=== PATIENT | female | born 1985 | race African-American/Black ===

== ENCOUNTER 2020-12-04 11:06 | Emergency (ER) | payer OTHER ==
[2020-12-04 12:33] LABS: #Eosinphils 0.1 10x3/uL (0.0-0.5); #Monocytes 0.8 10x3/uL (0.0-1.1); #Neutrophils 7.6 10x3/uL (1.5-8.4); %Basophils 0.2 % (0.0-2.0); %Eosinophils 0.8 % (0.0-6.0); %Lymphocytes 20.5 % (18.0-47.0); %Monocytes 7.4 % (0.0-10.0); %Neutrophils 70.4 % (40.0-75.0); Hemoglobin 10.8 g/dL (12.0-15.5); Mean Corpuscular HGB CONC 32.2 g/dL (32.0-36.0); Mean Corpuscular Hemoglobin 26.3 pg (27.0-33.0); Mean Corpuscular Volume 81.5 fl (81.6-98.3); Mean Platelet Volume 10.3 fl (7.4-10.4); Platelet Count 208 10x3/uL (150-450); RBC Distribution Width 14.8 % (11.5-14.5); Red Blood Cell (RBC) Count 4.11 10x6/uL (3.90-5.03); White Blood Cell (WBC) Count 10.8 10x3/uL (3.5-10.5)
[2020-12-04 12:34] LABS: Bilirubin Neg (Negative); Blood, Urine 10 (Negative); Clarity Slightly Cloudy (Clear); Glucose, Urine (Dipstick) Normal (Negative); Ketone, Urine 5 mg/dL (Negative); Leukocyte 25 (Negative); Nitrite Positive (Negative); Protein, Urine (Dipstick) 15 mg/dl (Neg-Trace); pH, Urine 6.5 (5.0-9.0)
[2020-12-04 12:35] LABS: Pregnancy Test - Urine (BHCG) POSITIVE (Negative); Pregu Control Background? CLEAR/WHITE (CLR/WHITE); Pregu Control Bar Appear? YES (CONTROL BAR)
[2020-12-04 12:43] LABS: Bacteria/HPF 1+ HPF (None Seen); RBC/HPF 0-3 HPF (0-3); WBC/HPF 0-3 HPF (0-3)
[2020-12-04 12:49] LABS: ALT (SGPT) 6 U/L (8-55); AST (SGOT) 12 U/L (5-34); Albumin 3.3 g/dL (3.5-5.0); Alkaline Phosphatase 124 U/L (40-110); Anion Gap 10 mmol/L (10-20); BUN (Urea Nitrogen) 6 mg/dL (7.0-18.7); Bilirubin, Total 0.2 mg/dL (0.2-1.2); Calc. Creatinine Clearance 0 mL/min (70-130); Calcium 9.1 mg/dL (7.8-10.44); Carbon Dioxide 24 mmol/L (22-29); Chloride 105 mmol/L (98-107); Globulin 3.4 g/dL (2.4-3.5); Glucose 81 mg/dL (70-105); Lipase 19 U/L (8-78); Potassium 4.2 mmol/L (3.5-5.1); Protein, Total 6.7 g/dL (6.0-8.3); Sodium 135 mmol/L (136-145)
== END 2020-12-04 14:40 | disposition home or self-care (01) ==
LOC: CSHERS 11:06
DX: R10.2 Pelvic and perineal pain (principal); Z33.1 Pregnant state, incidental
CPT/HCPCS: 36415; 76815; 80053; 81003; 81015; 81025; 83690; 84702; 85025

== ENCOUNTER 2021-03-21 04:24 | Inpatient (IN) | payer OTHER ==
[2021-03-21] MEDS ORDERED: Ondansetron PF 4 MG/2 ML Vial IVP PRN ×3 (05:19→12:32)
[2021-03-21] MEDS ORDERED: Bicitra 30 ML UDCUP PO PRN (05:19)
[2021-03-21] MEDS ORDERED: Docusate 100 MG CAP PO PRN (05:19)
[2021-03-21] MEDS ORDERED: Famotidine/PF 20 mg/2ml Vial SLOW IVP PRN (05:19)
[2021-03-21] MEDS ORDERED: hydrALAZINE 20 MG/ML VIAL SLOW IVP PRN ×2 (05:19→12:32)
[2021-03-21] MEDS ORDERED: Promethazine HCl 25 MG/ML VIAL IM PRN ×3 (05:19→12:32)
[2021-03-21] MEDS ORDERED: Acetaminophen 500 MG TAB PO PRN (05:19)
[2021-03-21] MEDS ORDERED: Azithromycin 500 MG in Sodium Chloride 0.9% 250 ML 250 ML IVPB SCH (05:30)
[2021-03-21] MEDS ORDERED: Lactated Ringer's 1,000 ML IV SCH (05:30)
[2021-03-21] MEDS ORDERED: CEFAZOLIN 2 GM in Premix Bag 1 BAG IVPB SCH (05:30)
[2021-03-21 05:42] VITALS: BMI 42.0
[2021-03-21 06:29] LABS: Hemoglobin 10.1 g/dL (12.0-15.5); Mean Corpuscular HGB CONC 30.9 g/dL (32.0-36.0); Mean Corpuscular Hemoglobin 24.3 pg (27.0-33.0); Mean Corpuscular Volume 78.8 fl (81.6-98.3); Mean Platelet Volume 11.1 fl (7.4-10.4); Platelet Count 179 10x3/uL (150-450); RBC Distribution Width 14.7 % (11.5-14.5); Red Blood Cell (RBC) Count 4.15 10x6/uL (3.90-5.03); White Blood Cell (WBC) Count 10.8 10x3/uL (3.5-10.5)
[2021-03-21] MEDS ORDERED: Oxytocin 10 UNITS/ML VIAL ONE (06:48)
[2021-03-21] MEDS ORDERED: Morphine PF 10 MG/10 ML VIAL ONE (06:48)
[2021-03-21] MEDS ORDERED: Phenylephrine 40 MG/NS 250 ML 250 ML ONE (06:49)
[2021-03-21] MEDS ORDERED: Ondansetron PF 4 MG/2 ML Vial ONE (06:49)
[2021-03-21] MEDS ORDERED: Metoclopramide HCl 10 MG/2 ML VIAL ONE (06:49)
[2021-03-21] MEDS ORDERED: Ketorolac Tromethamine 30 MG/ML VIAL ONE (06:49)
[2021-03-21] MEDS ORDERED: PHENYLEPHRINE-NS 100 MCG/ML 10 ML SYRINGE ONE (06:49)
[2021-03-21] MEDS ORDERED: Dexamethasone 4 mg/ml Vial ONE (06:49)
[2021-03-21] MEDS ORDERED: Carboprost 250 MCG/ML AMP ONE (07:00)
[2021-03-21] MEDS ORDERED: Methylergonovine 0.2 MG/ML VIAL ONE (07:00)
[2021-03-21] MEDS ORDERED: Misoprostol 200 MCG TAB ONE (07:01)
[2021-03-21 07:06] LABS: Hep B Surf Ag Non-Reactive S/CO (NonReactive)
[2021-03-21 07:07] LABS: Syphilis Antibody Nonreactive (Nonreactive); Syphilis Antibody Index 0.04 S/CO (<1.00 Non-Reactive)
[2021-03-21] MEDS ORDERED: EPINEPHrine 1 MG/10 ML Abboject SYRINGE ONE (07:51)
[2021-03-21] MEDS ORDERED: EPINEPHrine 1 MG/ML AMP ONE (07:54)
[2021-03-21] MEDS ORDERED: ePHEDrine Sulfate 50 MG/10 ML VIAL ONE (08:16)
[2021-03-21] MEDS ORDERED: L&D-Morphine 4 MG/ML VIAL SLOW IVP PRN (10:07)
[2021-03-21] MEDS ORDERED: Naloxone HCl 0.4 mg/ml Vial IV PRN (10:07)
[2021-03-21] MEDS ORDERED: Ondansetron HCl/PF 4 MG/2 ML Vial IVP PRN (10:07)
[2021-03-21] MEDS ORDERED: Hydrocerin (Eucerin) Cream 120 gm Jar TOP PRN (10:07)
[2021-03-21] MEDS ORDERED: Promethazine HCl 25 MG SUPP PR PRN (10:07)
[2021-03-21] MEDS ORDERED: Naloxone HCl 0.4 mg/ml Vial IVP PRN ×2 (10:07)
[2021-03-21] MEDS ORDERED: Meperidine HCl/PF 25 MG/ML VIAL SLOW IVP PRN (10:07)
[2021-03-21] MEDS ORDERED: HYDROmorphone 2 MG/ML VIAL SLOW IVP PRN (10:07)
[2021-03-21] MEDS ORDERED: Communication Order-Pharmacy FS SCH ×3 (10:15)
[2021-03-21] MEDS ORDERED: diphenhydrAMINE 50 MG/ML VIAL ONE (11:14)
[2021-03-21] MEDS: diphenhydrAMINE 50 MG/ML VIAL IVP PRN ×2 (11:16→15:45)
[2021-03-21] MEDS ORDERED: Simethicone Chewable 80 MG TAB PO PRN (12:32)
[2021-03-21] MEDS ORDERED: diphenhydrAMINE 25 MG CAP PO PRN (12:32)
[2021-03-21] MEDS ORDERED: Lanolin Ointment 7 GM TUBE TOP PRN (12:32)
[2021-03-21 12:49] LABS: HBSAg Index 0.18 S/CO (0-0.99)
[2021-03-21] MEDS ORDERED: Ketorolac Tromethamine 30 MG/ML VIAL IVP PRN (15:00)
[2021-03-21] MEDS: Docusate Calcium (SURFAK) 240 MG CAP PO SCH (22:00)
[2021-03-21] MEDS ORDERED: HYDROcodone/Acetaminophen 5/325 mg Tablet PO PRN (22:15)
[2021-03-21] MEDS: HYDROcodone/Acetaminophen 5/325 mg Tablet PO PRN (22:56)
[2021-03-22] MEDS: HYDROcodone/Acetaminophen 5/325 mg Tablet PO PRN ×3 (06:35→20:45)
[2021-03-22 09:02] LABS: Hemoglobin 9.6 g/dL (12.0-15.5); Mean Corpuscular Hemoglobin 24.5 pg (27.0-33.0); Mean Corpuscular Volume 79.1 fl (81.6-98.3); Mean Platelet Volume 11.8 fl (7.4-10.4); Platelet Count 217 10x3/uL (150-450); RBC Distribution Width 14.5 % (11.5-14.5); Red Blood Cell (RBC) Count 3.92 10x6/uL (3.90-5.03); White Blood Cell (WBC) Count 20.9 10x3/uL (3.5-10.5)
[2021-03-22] MEDS: Prenatal Vitamin 1 TAB PO SCH (11:11)
[2021-03-22] MEDS: Docusate Calcium (SURFAK) 240 MG CAP PO SCH ×2 (11:11→20:44)
[2021-03-22] MEDS ORDERED: Boostrix 0.5 ML (Tdap) VIAL IM ONE (12:32)
[2021-03-22] MEDS: Ibuprofen 800 MG TAB PO SCH (20:44)
[2021-03-23] MEDS: Ibuprofen 800 MG TAB PO SCH ×3 (05:01→21:00)
[2021-03-23] MEDS: HYDROcodone/Acetaminophen 5/325 mg Tablet PO PRN ×3 (08:55→21:03)
[2021-03-23] MEDS: Prenatal Vitamin 1 TAB PO SCH (08:55)
[2021-03-23] MEDS: Docusate Calcium (SURFAK) 240 MG CAP PO SCH ×2 (08:55→21:00)
[2021-03-24] MEDS: Ibuprofen 800 MG TAB PO SCH ×2 (05:19→14:04)
[2021-03-24] MEDS: HYDROcodone/Acetaminophen 5/325 mg Tablet PO PRN ×2 (05:22→12:05)
[2021-03-24 07:37] VITALS: BP 115/66; TEMP 97.8
[2021-03-24] MEDS: Prenatal Vitamin 1 TAB PO SCH (09:09)
[2021-03-24] MEDS: Docusate Calcium (SURFAK) 240 MG CAP PO SCH (09:09)
== END 2021-03-24 14:35 | disposition home or self-care (01) | DRG 785 ==
LOC: CSHLD 04:24 → CSHPP 12:15
PROVIDERS: ADMIT Family Medicine; ATTEND Family Medicine
PROC: 10D00Z1 Extraction of Products of Conception, Low, Open Approach (ICD-10-PCS; principal; 2021-03-21)
PROC: 0UB70ZZ Excision of Bilateral Fallopian Tubes, Open Approach (ICD-10-PCS; 2021-03-21)
DX: O34.211 Maternal care for low transverse scar from previous cesarean delivery (principal); O99.214 Obesity complicating childbirth; K21.9 Gastro-esophageal reflux disease without esophagitis; O99.62 Diseases of the digestive system complicating childbirth; O26.893 Other specified pregnancy related conditions, third trimester; Z3A.39 39 weeks gestation of pregnancy; Z37.0 Single live birth; Z67.91 Unspecified blood type, Rh negative; Z80.3 Family history of malignant neoplasm of breast
CPT/HCPCS: 36415; 51702; 85027; 85461; 86780; 86850; 86900; 86901; 86922; 87340; 88302; 90384; 96372; J0171; J0456; J0690; J1100; J1200; J1885; J2274; J2405; J2765; J7050; J7120

== ENCOUNTER 2022-03-15 20:53 | Emergency (ER) | payer MEDICAID, OTHER ==
[2022-03-15] MEDS ORDERED: cefTRIAXone\\ROCEPHIN 1 GM VIAL ONE (21:37)
[2022-03-15] MEDS ORDERED: Lidocaine 1% MPF 2 ML VIAL ONE (21:37)
[2022-03-15] MEDS ORDERED: Azithromycin 250 MG TAB ONE (21:38)
[2022-03-15 21:58] LABS: Bilirubin Neg (Negative); Blood, Urine 250 (Negative); Clarity Cloudy (Clear); Glucose, Urine (Dipstick) Normal (Negative); Ketone, Urine 5 mg/dL (Negative); Leukocyte 500 (Negative); Nitrite Negative (Negative); Protein, Urine (Dipstick) 500 mg/dl (Neg-Trace); Specific Gravity, Urine 1.025 (1.002-1.036)
[2022-03-15 22:00] LABS: Pregnancy Test - Urine (BHCG) Negative (Negative); Pregu Control Background? CLEAR/WHITE (CLR/WHITE); Pregu Control Bar Appear? YES (CONTROL BAR); Specific Gravity 1.025 (1.002-1.036)
[2022-03-15 22:05] LABS: Bacteria/HPF None Seen HPF (None Seen); Squamous Epithelial 0-3 HPF (0-3); WBC/HPF Greater than 50 HPF (0-3)
== END 2022-03-15 22:00 | disposition home or self-care (01) ==
LOC: CSHERS 20:53
DX: N39.0 Urinary tract infection, site not specified (principal)
CPT/HCPCS: 81003; 81015; 81025; 96372; 99283; J0696

== ENCOUNTER 2025-06-07 01:10 | Emergency (ER) | payer MEDICAID ==
[2025-06-07 01:36] LABS: Glucose, Urine (Dipstick) Normal (Negative); Leukocyte 500 (Negative); Protein, Urine (Dipstick) 30 mg/dl (Neg-Trace); Specific Gravity, Urine 1.025 (1.005-1.030)
[2025-06-07 01:37] LABS: Pregnancy Test - Urine (BHCG) Negative (Negative); Pregu Control Background? CLEAR/WHITE (CLR/WHITE); Pregu Control Bar Appear? YES (CONTROL BAR)
[2025-06-07] MEDS ORDERED: cefTRIAXone (ROCEPHIN) 1 GM VIAL ONE (01:42)
[2025-06-07 01:45] LABS: Bacteria/HPF None Seen HPF (None Seen); CAUTI Indications for Culture Dysuria,urgency,freq
[2025-06-07 01:47] LABS: Urine Culture Reflex Yes Yes
== END 2025-06-07 01:47 | disposition home or self-care (01) ==
LOC: CSHERS 01:10
DX: N39.0 Urinary tract infection, site not specified (principal); E66.01 Morbid (severe) obesity due to excess calories
CPT/HCPCS: 81001; 81025; 87086; 96372; 99283; J0696